=== PATIENT | female | born 1970 | race Caucasian/White ===

== ENCOUNTER 2016-12-22 01:47 | Emergency (ER) | payer OTHER ==
[2016-12-22 01:55] VITALS: TEMP 97.1
[2016-12-22] MEDS ORDERED: HYDROmorphone 1 MG/ML 1 ML SYRINGE IVP STA (02:06)
[2016-12-22] MEDS ORDERED: SODIUM CHLORIDE 0.9% 1,000 ML IV STA (02:06)
[2016-12-22] MEDS ORDERED: ONDANSETRON 4 MG/2 ML VIAL IVP STA (02:06)
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
[2016-12-22 02:52] LABS: Basophils # (A) 0.1 k/uL (0-0.2); Basophils % (A) 0 %; CH 31.6; CHCM 33.4; Eosinophils # (A) 0.1 k/uL (0-0.7); Eosinophils % (A) 1 %; HCT 47.5 % (34.0-46.0); HDW 2.45; Luc # (Auto) 0.11; Luc % (Auto) 1; Lymphocytes # (A) 2.3 k/uL (1.0-4.8); Lymphocytes % (A) 21 %; MCHC 33.6 g/dL (31.0-37.0); MCV 95.1 fL (80.0-100.0); Mean Platelet Volume 7.6; Monocytes # (A) 0.6 k/uL (0-1.0); Monocytes % (A) 5 %; Neutrophils % (A) 72 %; RBC 4.99 m/uL (3.80-5.40); RDW 13.8 % (11.5-15.5); WBC 11.1 k/uL (3.8-10.6); WBC (Perox) 10.89
[2016-12-22 03:03] LABS: ALT 30 U/L (9-52); AST 26 U/L (14-36); Alkaline Phosphatase 73 U/L (38-126); Amylase 42 U/L (30-110); Anion Gap 12 mmol/L; Blood Urea Nitrogen 16 mg/dL (7-17); Carbon Dioxide 21 mmol/L (22-30); Chloride 107 mmol/L (98-107); Glucose 93 mg/dL (74-99); Non-African American GFR(MDRD) >60 (>60 ml/min/1.73 sqM); Potassium 3.2 mmol/L (3.5-5.1); Sodium 140 mmol/L (137-145); Total Bilirubin 0.8 mg/dL (0.2-1.3); Total Protein 6.9 g/dL (6.3-8.2)
--- NOTE | 2016-12-22 03:07 | XR ---
EXAM: XR Abdomen Complete, 2 or More Views CLINICAL HISTORY: Pain TECHNIQUE: Frontal view of the abdomen/pelvis with upright view of the abdomen. COMPARISON: No relevant prior studies available. FINDINGS: Intraperitoneal space: Surgical clips seen within the left hemipelvis, which are nonspecific. Surgical clips within the right upper quadrant, likely prior cholecystectomy. Calcific densities seen within the lower pelvis, likely phleboliths.No free air. Gastrointestinal tract: Unremarkable. No dilation. Bones/joints: Unremarkable. IMPRESSION: No acute findings.
--- NOTE | 2016-12-22 03:16 | CT ---
EXAM: CT Head Without Intravenous Contrast CLINICAL HISTORY: Reason: Pain TECHNIQUE: Axial computed tomography images of the head/brain without intravenous contrast. CTDI is 60.30 mGy and DLP is 1108.40 mGy-cm. This CT exam was performed using one or more of the following dose reduction techniques: automated exposure control, adjustment of the mA and/or kV according to patient size, and/or use of iterative reconstruction technique. COMPARISON: No relevant prior studies available. FINDINGS: Brain: Unremarkable. No hemorrhage. No significant white matter disease. No edema. Ventricles: Unremarkable. No ventriculomegaly. Bones/joints: Unremarkable. No acute fracture. Soft tissues: Unremarkable. Sinuses: Minimal mucosal thickening in the basal sinuses. Mastoid air cells: Unremarkable as visualized. No mastoid effusion. IMPRESSION: No acute findings. EXAM: CT Cervical Spine Without Intravenous Contrast CLINICAL HISTORY: Reason: Pain TECHNIQUE: Axial computed tomography images of the cervical spine without intravenous contrast. CTDI is 19.90 mGy and DLP is 429.6 mGy-cm. This CT exam was performed using one or more of the following dose reduction techniques: automated exposure control, adjustment of the mA and/or kV according to patient size, and/or use of iterative reconstruction technique. COMPARISON: No relevant prior studies available. FINDINGS: Vertebrae: Unremarkable. No acute fracture. Discs/spinal canal/neural foramina: No acute findings. No spinal canal stenosis. Soft tissues: Unremarkable. Lung apices: Paraseptal emphysema. IMPRESSION: Normal cervical spine CT.
--- NOTE | 2016-12-22 03:18 | CT ---
EXAM: CT Maxillofacial Without Intravenous Contrast CLINICAL HISTORY: Pain TECHNIQUE: Axial computed tomography images of the face without intravenous contrast. CTDI is 30.60 mGy and DLP is 538.60 mGy-cm. This CT exam was performed using one or more of the following dose reduction techniques: automated exposure control, adjustment of the mA and/or kV according to patient size, and/or use of iterative reconstruction technique. COMPARISON: No relevant prior studies available. FINDINGS: Bones/joints: No acute fracture. Soft tissues: Soft tissue swelling and small hematoma overlying the right maxillary promontory, likely posttrauma. Orbits: Mild bilateral proptosis. Both globes, which is nonspecific. Sinuses: Unremarkable. No air-fluid levels. IMPRESSION: Soft tissue swelling and small hematoma overlying the right maxillary promontory, likely posttrauma.
[2016-12-22] MEDS ORDERED: POTASSIUM CHLORIDE ORAL LIQUID 40 MEQ/30 ML CUP PO ONE (03:43)
[2016-12-22 03:53] LABS: Appearance,Urine Cloudy (Clear); Bacteria,Urine Many /hpf; Bilirubin,Urine Negative (Negative); Glucose,Urine (UA) Negative (Negative); Ketones,Urine Trace (Negative); Leukocyte Esterase,Urine Small (Negative); Mucus,Urine Rare /hpf; Nitrite,Urine Positive (Negative); Particle Count 44274; Protein,Urine 1+ (Negative); RBC,Urine 2 /hpf (0-5); Specific Gravity,Urine 1.015 (1.001-1.035); Squamous Epithelial Cell,Urine 2 /hpf (0-4); UA Billing (MACRO vs. MICRO) MICRO; Urobilinogen,Urine <2.0 mg/dL (<2.0); WBC,Urine 30 /hpf (0-5)
[2016-12-22] MEDS ORDERED: SODIUM CHLORIDE 0.9% 500 ML IV STA (04:01)
[2016-12-22 04:30] VITALS: PULSE 78
[2016-12-22 05:56] VITALS: BP 121/72; RESP 16
== END 2016-12-22 05:54 | disposition home or self-care (01) ==
LOC: EC 01:47
DX: S00.83XA Contusion of other part of head, initial encounter (principal); N39.0 Urinary tract infection, site not specified; R10.9 Unspecified abdominal pain; R11.2 Nausea with vomiting, unspecified; R19.7 Diarrhea, unspecified; K21.9 Gastro-esophageal reflux disease without esophagitis; I10 Essential (primary) hypertension; F31.9 Bipolar disorder, unspecified; E87.6 Hypokalemia; F41.9 Anxiety disorder, unspecified; F17.200 Nicotine dependence, unspecified, uncomplicated; Z79.899 Other long term (current) drug therapy; Z88.6 Allergy status to analgesic agent; Z88.8 Allergy status to other drugs, medicaments and biological substances; Y08.89XA Assault by other specified means, initial encounter
CPT/HCPCS: 36415; 80053; 82150; 83690; 85025; 81001; 74020; 72125; 70486; 70450; 99285; 96365; 96375 ×2; 96361 ×2; J2405; J0696; J1170

== ENCOUNTER 2019-07-14 12:44 | Emergency (ER) | payer OTHER ==
[2019-07-14 12:54] VITALS: RESP 18; TEMP 98.2
[2019-07-14] MEDS ORDERED: HYDROmorphone 0.5 MG/0.5 ML SYRINGE IVP PRN (13:02)
[2019-07-14] MEDS ORDERED: ACETAMINOPHEN TAB 325 MG TAB PO PRN (13:02)
[2019-07-14] MEDS ORDERED: HYDROmorphone 1 MG/ML 1 ML SYRINGE IVP PRN (13:02)
[2019-07-14] MEDS ORDERED: NALOXONE 0.4 MG/ML 1 ML VIAL IV PRN (13:02)
--- NOTE | 2019-07-14 13:11 | ED ---
General Adult HPI - General Chief complaint: Skin/Abscess/Foreign Body Stated complaint: facial swelling Time Seen by Provider: 07/14/19 12:52 Source: patient, EMS, RN notes reviewed, old records reviewed Mode of arrival: EMS Limitations: no limitations - History of Present Illness Initial comments: 48 yo female presents as transfer from outside facility with oropharyngeal infection. She had been transferred with CT findings concerning for prevertebral retropharyngeal soft tissue swelling and swelling in the left peritonsillar and parapharyngeal region. Concern for infectious versus inflammatory processes. There is no reported abscess on CT findings patient was given Decadron, pain control, and clindamycin prior to transfer. She states she still has some pain but has improved. No dyspnea during transport. She does report subjective fever and chills. - Related Data Home Medications Medication Instructions Recorded Confirmed DULoxetine HCL [Cymbalta] 60 mg PO DAILY 04/17/15 01/13/16 Dicyclomine [Bentyl] 20 mg PO QID 04/17/15 01/13/16 hydrOXYzine PAMOATE [Vistaril] 25 mg PO TID PRN 04/17/15 01/13/16 Ranitidine HCl [Zantac] 150 mg PO DAILY 05/23/15 01/13/16 Triamterene-Hctz 75-50Mg [Maxzide 1 tab PO DAILY 05/23/15 01/13/16 75-50] rOPINIRole HCL [Requip] 0.5 mg PO HS 01/13/16 01/13/16 Previous Rx's Medication Instructions Recorded Albuterol Inhaler [Ventolin Hfa 2 puff INHALATION RT-QID PRN #1 10/07/15 Inhaler] puff Cephalexin [Keflex] 500 mg PO Q8HR #21 cap 01/13/16 HYDROcodone/APAP 5-325MG [[place] 1 - 2 tab PO Q6HR PRN #15 tab 01/13/16 5-325] Nitrofurantoin Macrocrystal 100 mg PO BID #14 cap 12/22/16 [Macrodantin] Ondansetron Odt [Zofran ODT] 4 mg PO Q8HR PRN #20 tab 12/22/16 Allergies Allergy/AdvReac Type Severity Reaction Status Date / Time aripiprazole [From Abilify] Allergy Rash/Hives Verified 01/13/16 14:52 tramadol HCl [From Ultram] Allergy Rash/Hives Verified 01/13/16 14:52 trazodone Allergy Rash/Hives Verified 01/13/16 14:52 escitalopram oxalate AdvReac Nausea & Verified 01/13/16 14:52 [From Lexapro] Vomiting loratadine [From Claritin] AdvReac increased Verified 01/13/16 14:52 nasal stuffiness pregabalin [From Lyrica] AdvReac seizures Verified 01/13/16 14:52 Review of Systems ROS Statement: Those systems with pertinent positive or pertinent negative responses have been documented in the HPI. ROS Other: All systems not noted in ROS Statement are negative. Past Medical History Past Medical History: Asthma, COPD, Fibromyalgia, GERD/Reflux, Hypertension, Musculoskeletal Disorder, Osteoarthritis (OA), Seizure Disorder, Sleep Apnea/CPAP/BIPAP Additional Past Medical History / Comment(s): HX OF (1) SEIZURE 4 YEARS AGO CAUSED BY LYRICA., DDD, MIGRAINES, RESTLESS LEG SYNDROME, SLEEP APNEA (NO MACHINE), IBS, ABD HERNIA., ADMITTED TO [facility] 04/17/15 FOR CHEST PAIN AND PASSING OUT. History of Any Multi-Drug Resistant Organisms: None Reported Past Surgical History: Cholecystectomy, Hysterectomy Additional Past Surgical History / Comment(s): laparoscopy Past Anesthesia/Blood Transfusion Reactions: Motion Sickness, Postoperative Nausea & Vomiting (PONV) Additional Past Anesthesia/Blood Transfusion Reaction / Comment(s): PT STATES SHE GETS N & V WITH IV SEDATION ALSO. Past Psychological History: Anxiety, Bipolar, Depression Smoking Status: Current every day smoker Past Alcohol Use History: None Reported Past Drug Use History: Marijuana - Past Family History Brother(s) Additional Family Medical History / Comment(s): She has one brother that is healthy and 1 sister that is healthy. She has one daughter that has no major medical problems. Father Family Medical History: Cancer Additional Family Medical History / Comment(s): from [place] Mother Family Medical History: Diabetes Mellitus Additional Family Medical History / Comment(s): Mother Is age 62 and patient does not know any of her medical problems. General Exam Limitations: no limitations General appearance: alert, in no apparent distress Head exam: Present: atraumatic, normocephalic Eye exam: Present: normal appearance, PERRL ENT exam: Absent: normal oropharynx (Left peritonsillar erythema and asymmetric swelling, no stridor, submandibular adenopathy.) Neck exam: Present: lymphadenopathy. Absent: meningismus Respiratory exam: Present: normal lung sounds bilaterally. Absent: respiratory distress, wheezes Cardiovascular Exam: Present: regular rate, normal rhythm GI/Abdominal exam: Present: soft. Absent: distended, tenderness Extremities exam: Present: normal inspection, normal capillary refill. Absent: pedal edema Neurological exam: Present: alert, oriented X3, CN II-XII intact. Absent: motor sensory deficit Psychiatric exam: Present: normal affect, normal mood Skin exam: Present: warm, dry, intact. Absent: cyanosis, diaphoretic Course Vital Signs 07/14/19 12:50 Temperature 98.2 F Pulse Rate 79 Respiratory 18 Rate Blood Pressure 133/71 O2 Sat by Pulse 95 Oximetry Medical Decision Making - Medical Decision Making Patient transferred for ENT evaluation. She has stable vitals on presentation. She is afebrile. She is oxygenating well on room air. No stridor on exam. She was given antibiotics, steroids prior to transfer. CT impression is reviewed showing increased soft tissue within the prevertebral, retropharyngeal soft tissues as well as the left peritonsillar and parapharyngeal region with deviation of the airway. No reported drainable abscess on CT impression. Images will be loaded for review this is pending. Patient had an elevated white blood cell count at 25,000. All laboratory testing will be repeated. She will be continued on clindamycin and Decadron. She will be admitted to internal medicine with ENT on consult. ENT has been paged awaiting callback. Case discussed with the admitting physician Dr. Carlson Disposition Clinical Impression: Peritonsillar cellulitis, Retropharyngeal abscess Disposition: ADMITTED IP TO THIS HOSP Condition: Stable Is patient prescribed a controlled substance at d/c from ED?: No Referrals: Jesse Moreau MD [Primary Care Provider] - 1-2 days Decision to Admit Reason: Admit from EC Decision Date: 07/14/19 Decision Time: 13:11
[2019-07-14] MEDS ORDERED: SODIUM CHLORIDE 0.9% 1,000 ML IV SCH (13:15)
--- NOTE | 2019-07-14 13:16 | P.HPIM ---
History of Present Illness H&P Date: 07/14/19 Chief Complaint: Sore throat This is a 48-year-old white female who was transferred to our emergency room from a different facility for peritonsillar swelling. She had a CT which was concerning for inflammation/infection but no tonsillar or peritonsillar abscess. She has been running a fever of 100.1 at home, associated with chills. She noted left-sided dysphagia for the past 3 days associated with dry cough. She denies shortness of breath, no hematuria dysuria hematemesis or hematochezia. She denies sick contacts, this has never happened before. At the time of examination patient is in bed, in mild distress secondary to dysphagia and pain. Review of Systems 10 systems reviewed, pertinent positive and negative findings as in HPI, no chest pain, tonsillar pain. Past Medical History Past Medical History: Asthma, COPD, Fibromyalgia, GERD/Reflux, Hypertension, Musculoskeletal Disorder, Osteoarthritis (OA), Seizure Disorder, Sleep Apnea/CPAP/BIPAP Additional Past Medical History / Comment(s): HX OF (1) SEIZURE 4 YEARS AGO CAUSED BY LYRICA., DDD, MIGRAINES, RESTLESS LEG SYNDROME, SLEEP APNEA (NO MACHINE), IBS, ABD HERNIA., ADMITTED TO [facility] 04/17/15 FOR CHEST PAIN AND PASSING OUT. History of Any Multi-Drug Resistant Organisms: None Reported Past Surgical History: Cholecystectomy, Hysterectomy Additional Past Surgical History / Comment(s): laparoscopy Past Anesthesia/Blood Transfusion Reactions: Motion Sickness, Postoperative Nausea & Vomiting (PONV) Additional Past Anesthesia/Blood Transfusion Reaction / Comment(s): PT STATES SHE GETS N & V WITH IV SEDATION ALSO. Past Psychological History: Anxiety, Bipolar, Depression Smoking Status: Current every day smoker Past Alcohol Use History: None Reported Past Drug Use History: Marijuana - Past Family History Brother(s) Additional Family Medical History / Comment(s): She has one brother that is healthy and 1 sister that is healthy. She has one daughter that has no major medical problems. Father Family Medical History: Cancer Additional Family Medical History / Comment(s): from [place] Mother Family Medical History: Diabetes Mellitus Additional Family Medical History / Comment(s): Mother Is age 62 and patient does not know any of her medical problems. Medications and Allergies Home Medications Medication Instructions Recorded Confirmed Type DULoxetine HCL [Cymbalta] 60 mg PO DAILY 09/30/15 06/27/16 History Dicyclomine [Bentyl] 20 mg PO QID 04/17/15 01/13/16 History hydrOXYzine PAMOATE [Vistaril] 25 mg PO TID PRN 04/17/15 01/13/16 History Ranitidine HCl [Zantac] 150 mg PO DAILY 05/23/15 01/13/16 History Triamterene-Hctz 75-50Mg [Maxzide 1 tab PO DAILY 05/23/15 01/13/16 History 75-50] Albuterol Inhaler [Ventolin Hfa 2 puff INHALATION RT-QID PRN #1 10/07/15 01/13/16 Rx Inhaler] puff Cephalexin [Keflex] 500 mg PO Q8HR #21 cap 01/13/16 Rx HYDROcodone/APAP 5-325MG [[place] 1 - 2 tab PO Q6HR PRN #15 tab 01/13/16 Rx 5-325] rOPINIRole HCL [Requip] 0.5 mg PO HS 01/13/16 01/13/16 History Nitrofurantoin Macrocrystal 100 mg PO BID #14 cap 12/22/16 Rx [Macrodantin] Ondansetron Odt [Zofran ODT] 4 mg PO Q8HR PRN #20 tab 12/22/16 Rx Allergies Allergy/AdvReac Type Severity Reaction Status Date / Time aripiprazole [From Abilify] Allergy Rash/Hives Verified 01/13/16 14:52 tramadol HCl [From Ultram] Allergy Rash/Hives Verified 01/13/16 14:52 trazodone Allergy Rash/Hives Verified 01/13/16 14:52 escitalopram oxalate AdvReac Nausea & Verified 01/13/16 14:52 [From Lexapro] Vomiting loratadine [From Claritin] AdvReac increased Verified 01/13/16 14:52 nasal stuffiness pregabalin [From Lyrica] AdvReac seizures Verified 01/13/16 14:52 Physical Exam Vitals: Vital Signs Temp Pulse Resp BP Pulse Ox 07/14/19 12:50 98.2 F 79 18 133/71 95 Intake and Output 07/13/19 07/14/19 07/14/19 22:59 06:59 14:59 Other: Weight 99.337 kg Constitutional: No acute distress, conversant, pleasant Eyes: Anicteric sclerae, moist conjunctiva, no lid-lag, PERRLA ENMT: NC/AT, left tonsillar swelling Neck:Supple, FROM, no masses, or JVD, Lungs: Clear to auscultation, Clear to percussion, Normal respiratory effort, no accessory muscle use Cardiovascular: Heart regular in rate and rhythm, No murmurs, gallops, or rubs no peripheral edema Abdominal: Soft Nontender, nom distended, no guarding, no rebound or rigidity, Obese Skin: Normal temperature, tone, texture, turgor, No induration No subcutaneous nodules, No rash, lesions, No ulcers Extremities:No digital cyanosis No clubbing, No calf tenderness Psychiatric: Alert and oriented to person, place and time, Appropriate affect Intact judgement Neuro: Muscles Strength 5/5 in all 4 extremities, Sensation to light touch grossly present throughout, Cranial nerves II-XII grossly intact. No focal sensory deficits Assessment and Plan Plan: 1. Peritonsillar infection unspecified organism, acute. IV antibiotics with clindamycin, IV steroids, ENT consultation, infectious disease consultation, pain control and IV fluids, conservative treatment. Monitor closely 2. COPD/asthma without exacerbation: Oxygen and bronchodilators as indicated 3. Essential hypertension: Hold antihypertensives until patient is more stable 4. GERD without esophagitis: PPI 5. History of seizures without acute attack: Resume home medications 6. Obstructive sleep apnea: On CPAP 7. Obesity: BMI 35.3, conservative treatment 8. Depression/anxiety/bipolar: Continue outpatient medications 9. Tobacco use without evidence of withdrawal: Nicotine patch as indicated DVT prophylaxis: SCDs Disposition: Home in 2-3 days
[2019-07-14 13:32] VITALS: PULSE 80
[2019-07-14 13:46] LABS: Basophils % (A) 0 %; Eosinophils # (A) 0.2 k/uL (0-0.7); Eosinophils % (A) 1 %; HCT 36.7 % (34.0-46.0); HGB 12.4 gm/dL (11.4-16.0); Lymphocytes # (A) 0.9 k/uL (1.0-4.8); Lymphocytes % (A) 5 %; MCHC 33.7 g/dL (31.0-37.0); Mean Platelet Volume 7.5; Monocytes # (A) 0.4 k/uL (0-1.0); Monocytes % (A) 2 %; Neutrophils # (A) 18.4 k/uL (1.3-7.7); Neutrophils % (A) 92 %; Platelet Count 464 k/uL (150-450); RBC 3.86 m/uL (3.80-5.40)
--- NOTE | 2019-07-14 13:48 | ED ---
Medical Decision Making - Lab Data Result diagrams: 07/14/19 13:25 Lab Results 07/14/19 Range/Units 13:25 WBC 20.0 H (3.8-10.6) k/uL RBC 3.86 (3.80-5.40) m/uL Hgb 12.4 (11.4-16.0) gm/dL Hct 36.7 (34.0-46.0) % MCV 95.0 (80.0-100.0) fL MCH 32.0 (25.0-35.0) pg MCHC 33.7 (31.0-37.0) g/dL RDW 13.0 (11.5-15.5) % Plt Count 464 H (150-450) k/uL Neutrophils % 92 % Lymphocytes % 5 % Monocytes % 2 % Eosinophils % 1 % Basophils % 0 % Neutrophils # 18.4 H (1.3-7.7) k/uL Lymphocytes # 0.9 L (1.0-4.8) k/uL Monocytes # 0.4 (0-1.0) k/uL Eosinophils # 0.2 (0-0.7) k/uL Basophils # 0.0 (0-0.2) k/uL Disposition Clinical Impression: Peritonsillar cellulitis, Retropharyngeal abscess Disposition: OTHER INSTITUTION NOT DEFINED Condition: Stable Is patient prescribed a controlled substance at d/c from ED?: No Referrals: Jesse Moreau MD [Primary Care Provider] - 1-2 days - Out of Hospital Transfer - Req. Specs Out of Hospital Transfer - Requested Specifics: Other Emergency Center (Transferred to [facility])
[2019-07-14 13:55] LABS: Albumin 3.8 g/dL (3.5-5.0); Calcium 9.3 mg/dL (8.4-10.2); Magnesium 2.1 mg/dL (1.6-2.3); Potassium 4.4 mmol/L (3.5-5.1)
[2019-07-14 14:24] VITALS: BP 132/83
[2019-07-14] MEDS ORDERED: CLINDAMYCIN 600 MG in DEXTROSE 5% IN WATER 50 ML IVPB SCH ×2 (16:00)
[2019-07-14] MEDS ORDERED: DEXAMETHASONE SOD PHOSPHATE 4 MG/ML 1 ML VIAL IV SCH (18:00)
[2019-07-14] MEDS ORDERED: DICYCLOMINE 20 MG TAB PO SCH (18:00)
[2019-07-14] MEDS ORDERED: ROPINIROLE HCL 0.5 MG PO SCH (21:00)
[2019-07-15] MEDS ORDERED: DULoxetine HCL 60 MG CAPSULE.DR PO SCH (09:00)
== END 2019-07-14 14:44 | disposition other institution (70) ==
LOC: EC 12:44
DX: J39.0 Retropharyngeal and parapharyngeal abscess (principal); J44.9 Chronic obstructive pulmonary disease, unspecified; I10 Essential (primary) hypertension; K21.9 Gastro-esophageal reflux disease without esophagitis; G47.33 Obstructive sleep apnea (adult) (pediatric); F41.9 Anxiety disorder, unspecified; F31.9 Bipolar disorder, unspecified; E66.9 Obesity, unspecified; Z68.35 Body mass index [BMI] 35.0-35.9, adult; F17.200 Nicotine dependence, unspecified, uncomplicated; G40.909 Epilepsy, unspecified, not intractable, without status epilepticus; Z79.899 Other long term (current) drug therapy; Z88.8 Allergy status to other drugs, medicaments and biological substances; Z88.5 Allergy status to narcotic agent; Z99.89 Dependence on other enabling machines and devices
CPT/HCPCS: 36415; 80053; 83735; 85025; 99285; 96374; 96376; 96361; J1170 ×2

== ENCOUNTER 2020-08-13 07:01 | Day surgery (SDC) | payer OTHER ==
[2020-08-07 14:43] VITALS: BMI 36.2
[~2020-08-13 07:01] MED LIST: LACTATED RINGERS 1,000 ML IV SCH; LIDOCAINE 1% (10MG/ML) FOR IV START INTRADERMA PRN
[2020-08-13 07:24] VITALS: RESP 16; TEMP 97.9
[2020-08-13] MEDS ORDERED: ONDANSETRON 4 MG/2 ML VIAL ONE (07:41)
[2020-08-13] MEDS ORDERED: ONDANSETRON 4 MG/2 ML VIAL IVP ONE (07:44)
[2020-08-13] MEDS ORDERED: PROPOFOL 10 MG/ML 20 ML VIAL IV ONE (08:18)
[2020-08-13] MEDS ORDERED: LIDOCAINE 1% INJ 10MG/ML (20 ML MDV) ONE (08:18)
--- NOTE | 2020-08-13 08:37 | P.PCN ---
Date of Procedure: 08/13/20 Description of Procedure: BRIEF HISTORY: Patient is a 49-year-old female presents for outpatient EGD for evaluation of heartburn. She reports a long-standing history of heartburn. Recently seen in the clinic and started on PPI therapy. She still reports some breakthrough symptoms on PPI therapy. PROCEDURE PERFORMED: Esophagogastroduodenoscopy with biopsy. PREOPERATIVE DIAGNOSIS: Heartburn, GERD. ESTIMATED BLOOD LOSS: Minimal. IV sedation per anesthesia. PROCEDURE: After informed consent was obtained, the patient was brought into the endoscopy unit. IV sedation was administered by Anesthesia under continuous monitoring. Initially the Olympus GIF-190 video endoscope was inserted into the mouth. Esophagus intubated without any difficulty. It was gradually advanced into the stomach and duodenum and carefully examined. The bulb and the second part of the duodenum appeared normal, with biopsies taken. The scope at this time was withdrawn to the stomach, adequately insufflated with air, and upon careful examination, mucosa of the antrum, body, cardia and the fundus appeared normal, except for some small amount of retained food debris in the fundus and a small amount of punctate erythema in the antrum and body suggestive of mild gastritis with biopsies taken. The scope was then withdrawn into the esophagus. The GE junction was located at 39 cm from the incisors and biopsied. The esophagus appeared normal. There were no erosions or ulcerations seen and the patient tolerated the procedure well. IMPRESSION: 1. Mild gastritis. 2. No ulceration, severe irritation or other abnormalities of the esophagus noted. 3. A small amount of retained food debris was noted in the stomach. 4. Biopsies taken of the duodenum, antrum and body GE junction. RECOMMENDATIONS: The findings of this examination were discussed with the patient . Okay to resume diet. Okay to resume medications. Continue PPI therapy. Continue GERD lifestyle modifications. Await pathology from biopsies. Follow up in the GI clinic as previously scheduled.
[2020-08-13 08:50] VITALS: BP 103/66; PULSE 75
== END 2020-08-13 09:09 | disposition home or self-care (01) ==
LOC: ORWHC2ENDO 07:01
PROVIDERS: ATTEND Internal Medicine
DX: K22.70 Barrett's esophagus without dysplasia (principal); K31.9 Disease of stomach and duodenum, unspecified; K29.70 Gastritis, unspecified, without bleeding; K21.9 Gastro-esophageal reflux disease without esophagitis; I10 Essential (primary) hypertension; G47.33 Obstructive sleep apnea (adult) (pediatric); Z99.89 Dependence on other enabling machines and devices; F17.200 Nicotine dependence, unspecified, uncomplicated; F31.9 Bipolar disorder, unspecified; G25.81 Restless legs syndrome; M79.7 Fibromyalgia; R56.9 Unspecified convulsions; Z90.49 Acquired absence of other specified parts of digestive tract; Z90.710 Acquired absence of both cervix and uterus; Z98.890 Other specified postprocedural states; Z79.52 Long term (current) use of systemic steroids; Z79.899 Other long term (current) drug therapy; Z88.5 Allergy status to narcotic agent; Z88.8 Allergy status to other drugs, medicaments and biological substances
CPT/HCPCS: 88305; 43239; J2405; J2001; J2704

== ENCOUNTER → 2020-08-27 | Outpatient (CLI) | payer OTHER | END | disposition home or self-care (01) | LOC: LABPAT 15:27 | PROVIDERS: ATTEND Surgery Plastic and Reconstructive Surgery | DX: I11.9 Hypertensive heart disease without heart failure (principal) | CPT/HCPCS: 93005 ==

== ENCOUNTER 2020-10-24 07:58 | Day surgery (SDC) | payer OTHER ==
[2020-09-27 09:51] VITALS: BMI 35.5
[2020-10-24] MEDS ORDERED: PROPOFOL 10 MG/ML 20 ML VIAL IV ONE ×2 (08:02→08:49)
[2020-10-24] MEDS ORDERED: GLYCOPYRROLATE 0.2 MG/ML 2 ML VIAL ONE (08:02)
[2020-10-24] MEDS ORDERED: LIDOCAINE 1% INJ 10MG/ML (20 ML MDV) ONE (08:02)
--- NOTE | 2020-10-24 08:29 | P.GSHP ---
History of Present Illness H&P Date: 10/24/20 CHIEF COMPLAINT: Change in bowel habits HISTORY OF PRESENT ILLNESS: The patient is a 49-year-old female who presents for change in bowel habits. Lower endoscopy was offered for further evaluation and management. PAST MEDICAL HISTORY: Please see list. PAST SURGICAL HISTORY: Please see list. MEDICATIONS: Please see list. ALLERGIES: Please see list. SOCIAL HISTORY: No illicit drug use FAMILY HISTORY: No reports of Crohn disease or ulcerative colitis. REVIEW OF ORGAN SYSTEMS: CONSTITUTIONAL: No reports of fevers or chills. PHYSICAL EXAM: VITAL SIGNS: Stable GENERAL: Well-developed pleasant in no acute distress. HEENT: No scleral icterus. Extraocular movements grossly intact. Moist buccal mucosa. NECK: Supple without lymphadenopathy. CHEST: Unlabored respirations. Equal bilateral excursions. CARDIOVASCULAR: Regular rate and rhythm. Distal 2+ pulses. ABDOMEN: Soft, nontender, nondistended. MUSCULOSKELETAL: No clubbing, cyanosis, or edema. ASSESSMENT: 1. Change in bowel habits. PLAN: 1. Recommend proceeding with a lower endoscopy Past Medical History Past Medical History: Asthma, COPD, Fibromyalgia, GERD/Reflux, Hypertension, Osteoarthritis (OA), Seizure Disorder Additional Past Medical History / Comment(s): HX OF (1) SEIZURE 8 YEARS AGO CAUSED BY LYRICA., MIGRAINES, RESTLESS LEG SYNDROME, IBS, ABD HERNIA., abdominal pain, diarrhea, colitis, History of Any Multi-Drug Resistant Organisms: None Reported Past Surgical History: Cholecystectomy, Hysterectomy Additional Past Surgical History / Comment(s): laparoscopy Past Anesthesia/Blood Transfusion Reactions: Motion Sickness, Postoperative Nausea & Vomiting (PONV) Additional Past Anesthesia/Blood Transfusion Reaction / Comment(s): PT STATES SHE GETS N & V WITH IV SEDATION ALSO. Past Psychological History: Anxiety, Bipolar, Depression Smoking Status: Current every day smoker Past Alcohol Use History: None Reported Additional Past Alcohol Use History / Comment(s): STARTED SMOKING AT AGE 17 ., SMOKES < 1/2 PPD. Past Drug Use History: Marijuana Additional Drug Use History / Comment(s): no current use - Past Family History Brother(s) Additional Family Medical History / Comment(s): She has one brother that is healthy and 1 sister that is healthy. She has one daughter that has no major medical problems. Father Family Medical History: Cancer Additional Family Medical History / Comment(s): from [place] Mother Family Medical History: Diabetes Mellitus Additional Family Medical History / Comment(s): Mother Is age 62 and patient does not know any of her medical problems. Medications and Allergies Home Medications Medication Instructions Recorded Confirmed Type DULoxetine HCL [Cymbalta] 60 mg PO QAM 04/17/15 10/24/20 History Triamterene-Hctz 75-50Mg [Maxzide 1 tab PO DAILY 05/23/15 10/24/20 History 75-50] Albuterol Inhaler (Mhu) [Ventolin 2 puff INHALATION RT-QID PRN #1 10/07/15 10/24/20 Rx Hfa Inhaler (Mhu)] puff Chlorthalidone [Hygroten] 50 mg PO DAILY 09/27/20 10/24/20 History DULoxetine HCL [Cymbalta] 20 mg PO 1700 09/27/20 10/24/20 History Dicyclomine [Bentyl] 40 mg PO QID 09/27/20 10/24/20 History Folic Acid 1 mg PO DAILY 09/27/20 10/24/20 History Loratadine [Claritin] 10 mg PO DAILY 09/27/20 10/24/20 History Melatonin 3 mg PO HS 09/27/20 10/24/20 History Omeprazole [PriLOSEC] 20 mg PO AC-BID 09/27/20 10/24/20 History Pyridoxine HCl (Vitamin B6) 100 mg PO DAILY 09/27/20 10/24/20 History [Vitamin B-6] Sucralfate [Carafate] 1 gm PO ACHS 09/27/20 10/24/20 History Torsemide [Demadex] 20 mg PO DAILY 09/27/20 10/24/20 History rOPINIRole HCL [Requip] 0.25 mg PO HS 09/27/20 10/24/20 History traZODone HCL 50 mg PO HS 09/27/20 10/24/20 History Allergies Allergy/AdvReac Type Severity Reaction Status Date / Time aripiprazole [From Abilify] Allergy Rash/Hives Verified 10/24/20 08:22 tramadol HCl [From Ultram] Allergy Rash/Hives Verified 10/24/20 08:22 escitalopram oxalate AdvReac Nausea & Verified 10/24/20 08:22 [From Lexapro] Vomiting loratadine [From Claritin] AdvReac increased Verified 10/24/20 08:22 nasal stuffiness pregabalin [From Lyrica] AdvReac seizures Verified 10/24/20 08:22
[2020-10-24 08:31] VITALS: TEMP 97
[2020-10-24] MEDS ORDERED: ONDANSETRON 4 MG/2 ML VIAL ONE (08:45)
[2020-10-24] MEDS ORDERED: ONDANSETRON 4 MG/2 ML VIAL IVP ONE (08:46)
--- NOTE | 2020-10-24 09:47 | P.PCN ---
Date of Procedure: 10/24/20 Description of Procedure: PREOPERATIVE DIAGNOSIS: Change in bowel habits POSTOPERATIVE DIAGNOSIS: Very poor prep Sigmoid colon adenoma OPERATION: Colonoscopy to the hepatic flexure Colonoscopy with hot snare polypectomy SURGEON: Jossie Joshi MD. ANESTHESIA: MAC. INDICATIONS: The patient is an 49-year-old female who presents with change in bowel habits. Lower endoscopies over for diagnostic including therapeutic management. Benefits and risks were described and informed consent was obtained. DESCRIPTION OF PROCEDURE: The patient had undergone Sutab prep. The patient had been brought into the operating room and laid in the left lateral decubitus position. After adequate intravenous sedation, the rectum was examined with 2% lidocaine jelly. No external hemorrhoids were encountered. A healing anal fissure was identified. The rectal tone was within normal limits. No lesions were palpated in the rectal vault. An Olympus colonoscope was advanced into the rectum to a tortuous sigmoid colon. The prep was extremely poor. Moderate adherent liquid stool was identified including dense feces clogging the scope. The scope was advanced to the hepatic flexure and limited due to severity of poor prep. Moderate stool prevented complete view of the mucosa. A few polyps were identified and resected. Retroflexion of the scope demonstrated grade 2 internal hemorrhoids without active bleeding or inflammation. The colon was desufflated. The patient had tolerated the procedure well. Withdrawal time was over 6 minutes. FINDINGS: Aronchick preparation quality scale 4 (1-5) Internal hemorrhoids, grade 2 No external hemorrhoids. Healing anal fissure Poor prep limiting view for AV malformations including diverticulosis or colitis Removal of 1 polyp: - Snare polypectomy 20 cm from the anal verge, 5 mm tubulovillous adenoma polyp, sigmoid colon RECOMMENDATIONS: She has extremely poor prep. Recommend 2-3 day bowel prep repeat scope in 6 months. Plan - Discharge Summary New Discharge Prescriptions: Continue DULoxetine HCL [Cymbalta] 60 mg PO QAM Triamterene-Hctz 75-50Mg [Maxzide 75-50] 1 tab PO DAILY Albuterol Inhaler (Mhu) [Ventolin Hfa Inhaler (Mhu)] 2 puff INHALATION RT-QID PRN #1 puff PRN Reason: Shortness Of Breath Or Wheezing Folic Acid 1 mg PO DAILY traZODone HCL 50 mg PO HS Melatonin 3 mg PO HS rOPINIRole HCL [Requip] 0.25 mg PO HS Torsemide [Demadex] 20 mg PO DAILY Loratadine [Claritin] 10 mg PO DAILY Chlorthalidone [Hygroten] 50 mg PO DAILY DULoxetine HCL [Cymbalta] 20 mg PO 1700 Omeprazole [PriLOSEC] 20 mg PO AC-BID Dicyclomine [Bentyl] 40 mg PO QID Sucralfate [Carafate] 1 gm PO ACHS Pyridoxine HCl (Vitamin B6) [Vitamin B-6] 100 mg PO DAILY Discharge Medication List DULoxetine HCL [Cymbalta] 60 mg PO QAM 04/17/15 [History] Triamterene-Hctz 75-50Mg [Maxzide 75-50] 1 tab PO DAILY 05/23/15 [History] Albuterol Inhaler (Mhu) [Ventolin Hfa Inhaler (Mhu)] 2 puff INHALATION RT-QID PRN #1 puff 10/07/15 [Rx] Chlorthalidone [Hygroten] 50 mg PO DAILY 09/27/20 [History] DULoxetine HCL [Cymbalta] 20 mg PO 1700 09/27/20 [History] Dicyclomine [Bentyl] 40 mg PO QID 09/27/20 [History] Folic Acid 1 mg PO DAILY 09/27/20 [History] Loratadine [Claritin] 10 mg PO DAILY 09/27/20 [History] Melatonin 3 mg PO HS 09/27/20 [History] Omeprazole [PriLOSEC] 20 mg PO AC-BID 09/27/20 [History] Pyridoxine HCl (Vitamin B6) [Vitamin B-6] 100 mg PO DAILY 09/27/20 [History] Sucralfate [Carafate] 1 gm PO ACHS 09/27/20 [History] Torsemide [Demadex] 20 mg PO DAILY 09/27/20 [History] rOPINIRole HCL [Requip] 0.25 mg PO HS 09/27/20 [History] traZODone HCL 50 mg PO HS 09/27/20 [History] Follow up Appointment(s)/Referral(s): Jossie Joshi MD [STAFF PHYSICIAN] - 10/29/20 Patient Instructions/Handouts: Colorectal Polyps (GEN), Colonoscopy (DC), *Surgery [facility] - (Anesthesia) Endoscopy Discharge Instructions Activity/Diet/Wound Care/Special Instructions: Recommend bowel prep for 2 to 3 days Discharge Disposition: HOME SELF-CARE
[2020-10-24] MEDS ORDERED: DEXAMETHASONE SOD PHOSPHATE 4 MG/ML 1 ML VIAL IV ONE (09:50)
[2020-10-24 09:59] VITALS: BP 124/79; PULSE 57; RESP 16
== END 2020-10-24 10:35 | disposition home or self-care (01) ==
LOC: ORWHC2ENDO 07:58
PROVIDERS: ATTEND Surgery Plastic and Reconstructive Surgery
DX: K63.5 Polyp of colon (principal); K60.2 Anal fissure, unspecified; Q43.8 Other specified congenital malformations of intestine; K21.9 Gastro-esophageal reflux disease without esophagitis; K64.1 Second degree hemorrhoids; J44.9 Chronic obstructive pulmonary disease, unspecified; Z97.2 Presence of dental prosthetic device (complete) (partial); M79.7 Fibromyalgia; I10 Essential (primary) hypertension; M19.90 Unspecified osteoarthritis, unspecified site; G40.909 Epilepsy, unspecified, not intractable, without status epilepticus; G43.909 Migraine, unspecified, not intractable, without status migrainosus; G25.81 Restless legs syndrome; K58.9 Irritable bowel syndrome, unspecified; K46.9 Unspecified abdominal hernia without obstruction or gangrene; K52.9 Noninfective gastroenteritis and colitis, unspecified; Z90.49 Acquired absence of other specified parts of digestive tract; Z90.710 Acquired absence of both cervix and uterus; F41.9 Anxiety disorder, unspecified; F32.9 Major depressive disorder, single episode, unspecified; F31.9 Bipolar disorder, unspecified; F17.210 Nicotine dependence, cigarettes, uncomplicated; Z80.1 Family history of malignant neoplasm of trachea, bronchus and lung; Z83.3 Family history of diabetes mellitus; Z79.51 Long term (current) use of inhaled steroids; Z79.899 Other long term (current) drug therapy; Z88.5 Allergy status to narcotic agent; Z88.8 Allergy status to other drugs, medicaments and biological substances
CPT/HCPCS: 88305; 45385; J1100; J2405; J2704

== ENCOUNTER → 2020-11-19 | Outpatient (CLI) | payer OTHER ==
--- NOTE | 2020-11-19 11:02 | CT ---
EXAMINATION TYPE: CT abdomen pelvis w con DATE OF EXAM: 11/19/2020 HISTORY: Hernia CT DLP: 2017.95mGycm Automated Exposure Control for Dose Reduction was Utilized. CONTRAST: CT scan of the abdomen and pelvis is performed with oral and with IV Contrast, patient injected with 100 mL of Isovue 300. COMPARISON: CT January 13, 2016 FINDINGS: LUNG BASES: No significant abnormality is appreciated. LIVER/GB: Cholecystectomy clips are redemonstrated. Persistent lobulated 2.8 cm thin-walled cyst jena pheral inferior right hepatic lobe axial image 43. PANCREAS: No significant abnormality is seen. SPLEEN: No significant abnormality is seen. ADRENALS: No significant abnormality is seen. KIDNEYS: No visualized excretion but no hydronephrosis. No concerning renal masses BOWEL: Oral contrast reaches the level of cecum. No suspicious small or large bowel dilatation. Mild wall thickening distal transverse colon is nonspecific favored product of poor distention. UTERUS/ADNEXA: Surgical changes from hysterectomy redemonstrated. LYMPH NODES: No new greater than 1cm abdominal or pelvic lymph nodes are appreciated. OSSEOUS STRUCTURES: No significant abnormality is seen. OTHER: Wide neck left periUmbilical hernia axial image 41containing fat and tiny mesenteric vessels s table from prior. IMPRESSION: Stable ventral wall hernia. No acute findings are evident.
== END | disposition home or self-care (01) ==
LOC: RADCTMAIN 08:17
PROVIDERS: ATTEND Surgery Plastic and Reconstructive Surgery
DX: K43.9 Ventral hernia without obstruction or gangrene (principal)
CPT/HCPCS: 74177; Q9967

== ENCOUNTER 2021-10-03 10:47 | Day surgery (SDC) | payer OTHER ==
[2021-09-29 11:49] VITALS: BMI 40.8
--- NOTE | 2021-10-03 10:13 | P.GSHP ---
History of Present Illness H&P Date: 10/03/21 CHIEF COMPLAINT: Ventral hernia HISTORY OF PRESENT ILLNESS: The patient is a 50-year-old female presents with a history of swelling and pain along the abdomen from a hernia. Symptoms have been present over 2 years. Now she presents for surgical intervention. PAST MEDICAL HISTORY: Please see list. PAST SURGICAL HISTORY: Please see list. MEDICATIONS: Please see list. ALLERGIES: Please see list. SOCIAL HISTORY: No illicit drug use FAMILY HISTORY: No reports of Crohn disease or ulcerative colitis. REVIEW OF ORGAN SYSTEMS: CONSTITUTIONAL: No reports of fevers or chills. No reports of weight loss. PHYSICAL EXAM: VITAL SIGNS: Stable GENERAL: Well-developed pleasant male in no acute distress. HEENT: No scleral icterus. Extraocular movements grossly intact. Moist buccal mucosa. NECK: Supple without lymphadenopathy. CHEST: Unlabored respirations. Equal bilateral excursions. CARDIOVASCULAR: Regular rate and rhythm. Distal 2+ pulses. ABDOMEN: Soft, nondistended. Palpable defect of the abdomen. No peritoneal signs. MUSCULOSKELETAL: No clubbing, cyanosis, or edema. ASSESSMENT: 1. Incisional hernia 2. Morbid obesity, BMI 40.9 PLAN: 1. Recommend proceeding with robotic ventral and right inguinal hernia repair with mesh. 2. Benefits and risks of surgical intervention was discussed including possibility of open technique. 3. DVT prophylaxis. 4. Antibiotic prophylaxis. 5. Non narcotic pain management including abdominal wall block and multimodal pain management described. 6. Smoking cessation advised for any recent tobacco use. 7. Weight loss management and recovery with high protein low carbohydrate diet advised for maximal recovery. Past Medical History Past Medical History: Asthma, COPD, Fibromyalgia, GERD/Reflux, Hypertension, Osteoarthritis (OA), Seizure Disorder Additional Past Medical History / Comment(s): HX OF (1) SEIZURE 8 YEARS AGO CAUSED BY LYRICA., MIGRAINES, RESTLESS LEG SYNDROME, IBS, ABD HERNIA., abdominal pain, diarrhea, colitis, SEASONAL ALLERGIES History of Any Multi-Drug Resistant Organisms: None Reported Past Surgical History: Cholecystectomy, Hysterectomy Additional Past Surgical History / Comment(s): laparoscopy, Past Anesthesia/Blood Transfusion Reactions: Motion Sickness, Postoperative Nausea & Vomiting (PONV) Additional Past Anesthesia/Blood Transfusion Reaction / Comment(s): PT STATES SHE GETS N & V WITH IV SEDATION ALSO. Smoking Status: Current every day smoker - Past Family History Brother(s) Additional Family Medical History / Comment(s): She has one brother that is healthy and 1 sister that is healthy. She has one daughter that has no major medical problems. Father Family Medical History: Cancer Additional Family Medical History / Comment(s): from [place] Mother Family Medical History: Diabetes Mellitus Additional Family Medical History / Comment(s): Mother Is age 62 and patient does not know any of her medical problems. Medications and Allergies Home Medications Medication Instructions Recorded Confirmed Type DULoxetine HCL [Cymbalta] 60 mg PO QAM 04/17/15 09/29/21 History Albuterol Inhaler (Mhu) [Ventolin 2 puff INHALATION RT-QID PRN #1 10/07/15 09/29/21 Rx Hfa Inhaler (Mhu)] puff Chlorthalidone [Hygroten] 50 mg PO DAILY 09/27/20 09/29/21 History DULoxetine HCL [Cymbalta] 20 mg PO 1700 09/27/20 09/29/21 History Dicyclomine [Bentyl] 40 mg PO QID 09/27/20 09/29/21 History Folic Acid 1 mg PO DAILY 09/27/20 09/29/21 History Loratadine [Claritin] 10 mg PO DAILY 09/27/20 09/29/21 History Omeprazole [PriLOSEC] 20 mg PO AC-BID 09/27/20 09/29/21 History Sucralfate [Carafate] 1 gm PO ACHS 09/27/20 09/29/21 History Torsemide [Demadex] 20 mg PO DAILY 09/27/20 09/29/21 History rOPINIRole HCL [Requip] 0.25 mg PO HS 09/27/20 09/29/21 History Allergies Allergy/AdvReac Type Severity Reaction Status Date / Time aripiprazole [From Abilify] Allergy Rash/Hives Verified 09/29/21 11:37 tramadol HCl [From Ultram] Allergy Rash/Hives Verified 09/29/21 11:37 escitalopram oxalate AdvReac Nausea & Verified 09/29/21 11:37 [From Lexapro] Vomiting loratadine [From Claritin] AdvReac increased Verified 09/29/21 11:37 nasal stuffiness pregabalin [From Lyrica] AdvReac seizures Verified 09/29/21 11:37
[~2021-10-03 10:47] MED LIST changes: +ACETAMINOPHEN TAB 500 MG TAB PO PRN; +DEXAMETHASONE SOD PHOSPHATE 4 MG/ML 1 ML VIAL IV ONE; +HEPARIN SODIUM,PORCINE/PF 5,000 UNIT/0.5 ML SYRINGE SQ PRN; -LACTATED RINGERS 1,000 ML IV SCH; -LIDOCAINE 1% (10MG/ML) FOR IV START INTRADERMA PRN; +MIDAZOLAM 2 MG/2 ML VIAL IV PRN; +ONDANSETRON 4 MG/2 ML VIAL IVP ONE; +SCOPOLAMINE 1.5MG/72HR PATCH TRANSDERM ONE; +SCOPOLAMINE 1.5MG/72HR PATCH TRANSDERM PRN; +fentaNYL (PF) 50 MCG/ML 2 ML AMP IV PRN
[2021-10-03] MEDS ORDERED: LACTATED RINGERS 1,000 ML IV ONE (12:26)
[2021-10-03 12:48] LABS: Glucose,Whole Blood 113 mg/dL (75-99)
[2021-10-03 13:05] LABS: Albumin 4.3 g/dL (3.5-5.0); Calcium 9.5 mg/dL (8.4-10.2); Potassium 3.9 mmol/L (3.5-5.1); Total Bilirubin 0.6 mg/dL (0.2-1.3); Total Protein 7.5 g/dL (6.3-8.2)
[2021-10-03 13:07] LABS: Basophils # (A) 0.1 k/uL (0-0.2); Basophils % (A) 1 %; Eosinophils # (A) 0.2 k/uL (0-0.7); Eosinophils % (A) 1 %; HCT 45.8 % (34.0-46.0); HGB 15.4 gm/dL (11.4-16.0); Lymphocytes # (A) 2.8 k/uL (1.0-4.8); Lymphocytes % (A) 26 %; MCH 31.3 pg (25.0-35.0); MCHC 33.6 g/dL (31.0-37.0); MCV 92.9 fL (80.0-100.0); Mean Platelet Volume 7.3; Monocytes # (A) 0.4 k/uL (0-1.0); Monocytes % (A) 4 %; Neutrophils # (A) 7.1 k/uL (1.3-7.7); Neutrophils % (A) 66 %; Platelet Count 402 k/uL (150-450); RBC 4.93 m/uL (3.80-5.40); RDW 13.9 % (11.5-15.5); WBC 10.7 k/uL (3.8-10.6)
[2021-10-03] MEDS ORDERED: MIDAZOLAM 2 MG/2 ML VIAL IVP ONE (13:16)
[2021-10-03] MEDS ORDERED: fentaNYL (PF) 50 MCG/ML 2 ML AMP IVP ONE (13:17)
--- NOTE | 2021-10-03 13:57 | P.ANPRN ---
Procedure Note - Anesthesia - Nerve Block Performed Bilateral Erector Spinae Single Time Out Performed: Yes ([id number]) Date of Procedure: 10/03/21 Procedure Start Time: 13:16 Procedure Stop Time: :21 Location of Patient: PreOp Indication: Acute Post-Operative Pain, Requested by Surgeon Specifically requested for management of pain by : Jossie Joshi Sedation Type: Sedate with meaningful contact maintained Preparation: Sterile Prep Position: Prone Catheter: None Needle Types: Pajunk Needle Gauge: 21 Ultrasound used to visualize needle placement: Yes Ultrasound used to observe medication spread: Yes Injectate: 0.5% Ropivacaine (see comment for volume) (15cc + 15cc nacl pf) Blood Aspirated: No Pain Paresthesia on Injection Noted: No Resistance on Injection: Normal Image Stored and Saved: Yes Events: Uneventful and Well Tolerated
[2021-10-03] MEDS ORDERED: ROCURONIUM 10 MG/ML (5 ML VIAL) IV ONE (14:19)
[2021-10-03] MEDS ORDERED: GLYCOPYRROLATE 0.2 MG/ML 2 ML VIAL ONE (14:19)
[2021-10-03] MEDS ORDERED: fentaNYL (PF) 50 MCG/ML 2 ML AMP ONE (14:19)
[2021-10-03] MEDS ORDERED: ROPIVACAINE 5 MG/ML 30 ML VIAL ONE (14:19)
[2021-10-03] MEDS ORDERED: LABETALOL 5 MG/ML VIAL MDV ONE (14:19)
[2021-10-03] MEDS ORDERED: PHENYLEPHRINE-0.9% NACL SYG 1,000 MCG/10 ML SYRINGE ONE (14:19)
[2021-10-03] MEDS ORDERED: SODIUM CHLORIDE 0.9% (PF) 10 ML VIAL ONE (14:19)
[2021-10-03] MEDS ORDERED: NEOSTIGMINE 1 MG/ML 10 ML VIAL ONE (14:19)
[2021-10-03] MEDS ORDERED: SUCCINYLCHOLINE CHLORIDE VIAL 200 MG/10 ML VIAL IV ONE (14:19)
[2021-10-03] MEDS ORDERED: PROPOFOL 10 MG/ML 20 ML VIAL IV ONE (14:19)
[2021-10-03] MEDS ORDERED: LIDOCAINE 1% INJ 10MG/ML (20 ML MDV) ONE (14:19)
[2021-10-03] MEDS ORDERED: MIDAZOLAM 2 MG/2 ML VIAL ONE (14:19)
[2021-10-03] MEDS ORDERED: BUPIVACAIN-EPI 0.25%-1:200,000 30 ML VIAL SQ ONE (14:25)
[2021-10-03] MEDS: LACTATED RINGERS 1,000 ML IV SCH ×3 (15:51→16:35)
[2021-10-03 15:53] VITALS: TEMP 97.5
[2021-10-03] MEDS ORDERED: oxyCODONE-APAP 7.5-325MG 1 EACH TAB PO PRN (15:57)
--- NOTE | 2021-10-03 16:28 | P.OP ---
Date of Procedure: 10/03/21 Description of Procedure: SURGEON: JOSSIE JOSHI MD PREOPERATIVE DIAGNOSES: 1. Recurrent incarcerated incisional hernia, epigastrium 2. Hypertensive heart disease 3. Chronic leukocytosis 4. Morbid obesity due to excess calories, BMI 40.8 5. Gastroesophageal reflux disease 6. Chronic obstructive pulmonary disease 7. Fibromyalgia 8. Seizure disorder 9. Restless leg syndrome 10. Postoperative nausea and vomiting 11. Bipolar disorder 12. Tobacco abuse disorder 13. Gen. anxiety disorder 14. Irritable bowel syndrome POSTOPERATIVE DIAGNOSES: PREOPERATIVE DIAGNOSES: 1. Recurrent incarcerated incisional hernia, epigastrium, 5-cm 2. Hypertensive heart disease 3. Chronic leukocytosis 4. Morbid obesity due to excess calories, BMI 40.8 5. Gastroesophageal reflux disease 6. Chronic obstructive pulmonary disease 7. Fibromyalgia 8. Seizure disorder 9. Restless leg syndrome 10. Postoperative nausea and vomiting 11. Bipolar disorder 12. Tobacco abuse disorder 13. Gen. anxiety disorder 14. Irritable bowel syndrome 15. Peritoneal adhesions, epigastrium OPERATION: 1. Robotic-assisted da Abi Xi laparoscopic lysis of adhesions 2. Robotic-assisted da Abi Xi laparoscopic repair of recurrent incarcerated incisional hernia of epigastric with mesh, ventralight ST mesh 11.4 cm Anesthesia: GETA, regional, local Estimated Blood Loss (ml): 5 Pathology: none COMPLICATIONS: None. Operative Findings: 1. Incarcerated incisional hernia epigastrium, subcutaneous defect 5 cm, fascial defect 3 cm 2. Fascia repaired using #1 V-lock suture INDICATIONS: The patient is a 50-year-old female who presents with history of incarcerated painful incisional hernia with recurrence. Surgical intervention with laparoscopic versus robotic and open techniques were reviewed. Placement of mesh was also reviewed. Benefits and risks were thoroughly described. Informed consent was obtained. DESCRIPTION OF PROCEDURE: The patient was brought into the operating room and laid in supine position. After general induction, the abdomen had been prepped and draped in standard sterile fashion. Ioban draping was also placed. Prior to incision, a timeout protocol was confirmed with surgical team regarding the patient's name including procedures to be performed. The robot was primed prior to the procedure. A field block using local anesthetic was placed along hernia site including the proposed port sites. Initial incision was made with an #11 blade along the left upper quadrant. A 0 degree 5 mm laparoscopic trocar entry was performed and insufflated. Three 8 mm ports were placed along the left lateral abdominal wall under direct localization after exchanging the 5-mm for an 8 mm port. Placements of the ports were 15 cm from the target anatomy and 10 cm apart. An accessory 12 mm port was placed at the epigastrium for exchange of mesh including sutures. The da [employer] Xi robot was previously primed, prepped and draped then docked from the right side of the patient onto the left side of the patient. I then sat at the robot Da [employer] Xi console where working arms of the robot including Bovie cautery connected to robotic scissors, needle paratransit driver, and graspers placed by the television production assistant. Omental to abdominal adhesions were found along the epigastrium. Peritoneal adhesions were removed using vessel sealer for lysis of adhesions over 30 minutes. Incarcerated omental contents were found along the epigastric incisional hernia with a subcutaneous incarceration of 5-cm. The incarcerated contents were reduced as the peritoneal fat was cleaned from the abdominal wall. The size of the fascial defect was 3-cm. Next, hemostasis was checked. The hernia defect was oversewn using #1 nonabsorbable V-lock suture with fascial imbrication x 2. Next, ventralight ST mesh 11.4 cm was placed with the rough side towards the abdominal wall to cover the repair and umbilical defect. Non-absorbable 2-0 VLOC 9 inch sutures were used to fixate the mesh. A final endoscopic imaging was obtained. All instruments and pneumoperitoneum were evacuated from the abdominal cavity. The da Abi Xi robot was undocked from the patient. I re-scrubbed into the case for closure of incisions. The fascia of the 12-mm port was probed and less than 8-mm in size. The incisions were reapproximated using 4-0 Monocryl in an interrupted subcuticular fashion. Liquid glue was applied to the skin after cleansing the skin with normal saline and dilute hydrogen peroxide. An abdominal binder was placed. An umbilical dressing was placed prior. At the end of the procedure, needle, sponge, and instrument count had been verified correct by household appliances service technician. The patient was taken to the postanesthesia care unit in stable condition. Patient's family, Angle was contacted [phone] with an update. Plan - Discharge Summary Discharge Rx Participant: Yes New Discharge Prescriptions: New Cyclobenzaprine [Flexeril] 10 mg PO TID #30 tab Simethicone [Gas-X] 125 mg PO AC-TID PRN #20 capsule PRN Reason: Pain Acetaminophen Tab [Tylenol Tab] 1,000 mg PO Q6HR PRN #30 tablet PRN Reason: Pain Continue Albuterol Inhaler (Mhu) [Ventolin Hfa Inhaler (Mhu)] 2 puff INHALATION RT-QID PRN #1 puff PRN Reason: Shortness Of Breath Or Wheezing Folic Acid 1 mg PO DAILY rOPINIRole HCL [Requip] 0.25 mg PO HS Torsemide [Demadex] 20 mg PO DAILY Loratadine [Claritin] 10 mg PO DAILY Chlorthalidone [Hygroten] 50 mg PO DAILY DULoxetine HCL [Cymbalta] 20 mg PO 1700 Omeprazole [PriLOSEC] 20 mg PO AC-BID Dicyclomine [Bentyl] 40 mg PO QID Sucralfate [Carafate] 1 gm PO ACHS Discontinued DULoxetine HCL [Cymbalta] 60 mg PO QAM Discharge Medication List Albuterol Inhaler (Mhu) [Ventolin Hfa Inhaler (u)] 2 puff INHALATION RT-QID PRN #1 puff 10/07/15 [Rx] Chlorthalidone [Hygroten] 50 mg PO DAILY 09/27/20 [History] DULoxetine HCL [Cymbalta] 20 mg PO 1700 09/27/20 [History] Dicyclomine [Bentyl] 40 mg PO QID 09/27/20 [History] Folic Acid 1 mg PO DAILY 09/27/20 [History] Loratadine [Claritin] 10 mg PO DAILY 09/27/20 [History] Omeprazole [PriLOSEC] 20 mg PO AC-BID 09/27/20 [History] Sucralfate [Carafate] 1 gm PO ACHS 09/27/20 [History] Torsemide [Demadex] 20 mg PO DAILY 09/27/20 [History] rOPINIRole HCL [Requip] 0.25 mg PO HS 09/27/20 [History] Acetaminophen Tab [Tylenol Tab] 1,000 mg PO Q6HR PRN #30 tablet 10/03/21 [Rx] Cyclobenzaprine [Flexeril] 10 mg PO TID #30 tab 10/03/21 [Rx] Simethicone [Gas-X] 125 mg PO AC-TID PRN #20 capsule 10/03/21 [Rx] Follow up Appointment(s)/Referral(s): Jossie Joshi MD [STAFF PHYSICIAN] - 10/07/21 (Telehealth) Patient Instructions/Handouts: *[facility] - Managing Your Pain After Surgery Without Opioids, *[facility] - Scopalamine Patch Instructions, Laparoscopic Herniorrhaphy (IP), Abdominal Binder (ED), Incisional Hernia (GEN), Ventral Hernia Repair (GEN), How to Stop Smoking (DC) Activity/Diet/Wound Care/Special Instructions: DO NOT REMOVE UMBILICAL DRESSING. Using antibacterial soap. No lifting over 4 pounds 4 weeks, November 03November shower. No bathtub soaks for 2 weeks, October 17 Wear abdominal binder daily for comfort except for showering. Use ice along incisions for today to prevent swelling. Take tylenol simethicone scheduled for 3 days for best pain relief Discharge Disposition: HOME SELF-CARE
[2021-10-03 16:31] VITALS: RESP 16
[2021-10-03] MEDS ORDERED: SIMETHICONE 80 MG CHEWABLE PO ONE (17:15)
[2021-10-03 17:24] VITALS: BP 118/73; PULSE 76
== END 2021-10-03 18:00 | disposition home or self-care (01) ==
LOC: OR 10:47
PROVIDERS: ATTEND Surgery Plastic and Reconstructive Surgery
DX: K43.2 Incisional hernia without obstruction or gangrene (principal); K43.0 Incisional hernia with obstruction, without gangrene; I11.9 Hypertensive heart disease without heart failure; D72.829 Elevated white blood cell count, unspecified; E66.01 Morbid (severe) obesity due to excess calories; Z68.41 Body mass index [BMI] 40.0-44.9, adult; K21.9 Gastro-esophageal reflux disease without esophagitis; J44.9 Chronic obstructive pulmonary disease, unspecified; M79.7 Fibromyalgia; G40.909 Epilepsy, unspecified, not intractable, without status epilepticus; G25.81 Restless legs syndrome; F31.9 Bipolar disorder, unspecified; Z72.0 Tobacco use; F41.1 Generalized anxiety disorder; K58.9 Irritable bowel syndrome, unspecified; J45.909 Unspecified asthma, uncomplicated; G43.909 Migraine, unspecified, not intractable, without status migrainosus
CPT/HCPCS: 49329; 49657; S2900; 64999; 80053; 85025